=== PATIENT | female | born 1970 | race Two or more races ===

== ENCOUNTER 2022-06-04 10:30 | Inpatient (IN) | payer OTHER ==
[~2022-06-04] VITALS: Ht 162.6 cm; Wt 104.3 kg
== END 2022-06-07 14:47 | disposition home or self-care (01) | DRG 743 ==
LOC: O/R 06-06 05:40 → SURG 06-06 07:00 → OB/GYN 06-06 11:34
PROVIDERS: ADMIT Obstetrics & Gynecology; ATTEND Obstetrics & Gynecology
PROC: 0DNW0ZZ Release Peritoneum, Open Approach (ICD-10-PCS; 2022-06-06)
PROC: 0UT10ZZ Resection of Left Ovary, Open Approach (ICD-10-PCS; principal; 2022-06-06 07:00)
DX: D27.1 Benign neoplasm of left ovary (principal); N73.6 Female pelvic peritoneal adhesions (postinfective); Z20.822 Contact with and (suspected) exposure to COVID-19